=== PATIENT | male | born 1945 | race Caucasian/White ===

== ENCOUNTER 2017-04-01 07:04 | Inpatient (IN) | payer BC, OTHER ==
[2017-03-27 09:51] VITALS: BMI 24.5
[2017-04-01] MEDS ORDERED: TAMSULOSIN HCL 0.4 MG CAP.ER.24H (FP) ONE (07:30)
[2017-04-01] MEDS ORDERED: MIDAZOLAM HCL 2 MG/2 ML SINGLE DOSE VIAL ONE ×2 (08:54)
[2017-04-01] MEDS ORDERED: DEXAMETHASONE SOD PHOSPHATE/PF 10 MG/ML SDV ONE (09:22)
[2017-04-01] MEDS ORDERED: BUPIVACAINE HCL/PF (5 MG/ML) 30 ML VIAL IJ ONE (09:22)
[2017-04-01] MEDS ORDERED: LIDOCAINE HCL 2% 100 MG/5 ML DISP.SYRIN ONE (09:44)
[2017-04-01] MEDS ORDERED: ceFAZolin SODIUM 1 GM VIAL ONE (09:53)
[2017-04-01] MEDS ORDERED: DEXAMETHASONE SOD PHOSPHATE 4 MG/1 ML VIAL ONE (10:17)
[2017-04-01] MEDS ORDERED: ONDANSETRON 4 MG/2 ML VIAL ONE (10:17)
[2017-04-01] MEDS ORDERED: NEOSTIGMINE METHYLSULFATE 0.5 MG/ML - 10 ML MDV ONE (10:48)
[2017-04-01] MEDS ORDERED: GLYCOPYRROLATE 0.2 MG/1 ML VIAL ONE (10:48)
[2017-04-01] MEDS ORDERED: oxyCODONE HCL 5 MG TABLET PO PRN (11:05)
[2017-04-01] MEDS ORDERED: morphine CARPU-JECT 10 MG/1 ML DISP.SYRIN IVPB PRN (11:05)
[2017-04-01] MEDS ORDERED: D5-1/2NS+20 MEQ KCL - 1,000 ML IV SCH (11:15)
[2017-04-01] MEDS ORDERED: ONDANSETRON 4 MG/2 ML VIAL IVPUSH PRN (11:24)
[2017-04-01] MEDS ORDERED: LACTATED RINGERS SOLUTION 1,000 ML IV SCH (11:30)
--- NOTE | 2017-04-01 12:39 | OP ---
DATE OF OPERATION: 04/01/2017 PREOPERATIVE DIAGNOSIS: Chronically incarcerated ventral hernia. POSTOPERATIVE DIAGNOSIS: Chronically incarcerated ventral hernia. PROCEDURE: Open repair of chronically incarcerated ventral hernia with mesh, bilateral component separation. SURGEON: Crow Mauricio MD PALLET REPAIRER: Shamar Jung DO ANESTHESIA: Kya Britt MD, (general). ESTIMATED BLOOD LOSS: Minimal. SPECIMENS: None. INDICATION FOR PROCEDURE: This is a 71-year-old gentleman with a known chronically incarcerated ventral hernia. It is causing him discomfort and he wishes to have this repaired. DESCRIPTION OF PROCEDURE: The patient was identified and appropriately positioned on the operating room table. After placement of general anesthesia, the abdomen was prepped and draped in the usual sterile fashion with ChloraPrep. A midline incision was made and deepened through the subcutaneous tissue. The hernia dissected down at the level of fascia and it was circumferentially isolated. The hernia was opened and the sac contained omentum. The omentum was reduced back into the abdominal cavity. The right retrorectus space was entered by dividing the posterior sheath above the umbilicus. The posterior sheath was divided with the cautery and the space was then developed with blunt dissection superiorly and inferiorly, laterally and superiorly, and inferiorly was taken approximately 4 inches above and below the actual defect and laterally it was taken out to the level of the perforating vessels where the junction of the transversus was. At this point, the transversus muscle just medial to the perforating vessels was then divided, was scored, and the fascia was released from the obliques as well as the rectus, and this was taken above and below the defect as well. The myofascial separation was done with the cautery throughout. Upon completion of the right side separation, a similar approach was done on the left. The left retrorectus space was entered by dividing the posterior sheath with the cautery. The space was then developed bluntly and the myofascial separation was performed between the transversus rectus and obliques. This was taken approximately 4 to 5 inches above the defect as well as below. Next, the posterior rectus sheath was then reapproximated with a running 3-0 Maxon suture. The defect was measured and a large 15 x 15 ProGrip was used for the operative repair along with a 6 x 11 EVY Bio. The 2 pieces of mesh were sewn together as a hybrid. The EVY Bio was left on the posterior sheath and the ProGrip with the grippy side towards the musculature. The mesh was fanned out to cover the retroactive space and then anchored with several interrupted ReliaTack sutures. The mesh was irrigated. The operative field was examined and noted to be hemostatic. The fascia was aligned. The midline fascia was then reapproximated with interrupted, inverted number 1 PDS suture. The subcutaneous space was irrigated and the skin closed with eva. At the conclusion of the case, all sponge and needle counts were correct. ATTESTATION: Brief operative note handwritten on the pre-printed form. Deny TURNER [id number]
[2017-04-01] MEDS ORDERED: TAMSULOSIN HCL 0.4 MG CAP.ER.24H (FP) PO SCH (22:00)
[2017-04-02 05:32] VITALS: BP 136/66; PULSE 72; TEMP 98.5
[2017-04-02] MEDS ORDERED: PANTOPRAZOLE SODIUM 40 MG in SODIUM CHLORIDE 100 ML IVPB SCH (10:00)
[2017-04-02] MEDS ORDERED: LOSARTAN POTASSIUM 50 MG TABLET (FP) PO SCH (10:00)
[2017-04-02] MEDS ORDERED: PATIENT'S OWN MEDICATION (NON-FORMULARY) (Irbesartan [Avapro] 300 MG) PO SCH (10:00)
[2017-04-02] MEDS ORDERED: ASPIRIN 81 MG CHEWABLE TABLETS PO SCH (10:00)
[2017-04-02] MEDS ORDERED: NEBIVOLOL 10 MG TABLET (FP) PO SCH (10:00)
[2017-04-02] MEDS ORDERED: PANTOPRAZOLE SODIUM 100 ML IVPB SCH (10:00)
[2017-04-02] MEDS ORDERED: ENOXAPARIN NA (PORCINE) 40 MG/0.4 ML DISP.SYRIN SQ SCH (10:00)
[2017-04-02] MEDS ORDERED: ATORVASTATIN CA 10 MG TABLET (FP) PO SCH (10:00)
== END 2017-04-02 11:30 | disposition home or self-care (01) | DRG 355 ==
LOC: FASU 07:04 → FM/S 12:31
PROVIDERS: ADMIT Surgery; ATTEND Surgery
PROC: 0WUF0JZ Supplement Abdominal Wall with Synthetic Substitute, Open Approach (ICD-10-PCS; principal; 2017-04-01 09:35)
DX: K43.6 Other and unspecified ventral hernia with obstruction, without gangrene (principal)
CPT/HCPCS: 94010; 94760